=== PATIENT | male | born 1975 | race Hispanic/Latino ===

== ENCOUNTER 2021-04-23 07:52 | Outpatient (CLI) | payer OTHER | END 2021-04-23 07:53 | disposition home or self-care (01) | LOC: CSHWCC 07:52 | PROVIDERS: ATTEND Nurse Practitioner Family | DX: T81.89XD Other complications of procedures, not elsewhere classified, subsequent encounter (principal); T88.8XXD Other specified complications of surgical and medical care, not elsewhere classified, subsequent encounter; G89.21 Chronic pain due to trauma; K59.00 Constipation, unspecified; Z87.828 Personal history of other (healed) physical injury and trauma | CPT/HCPCS: 11042; 97605; 99203; G0463 ==

== ENCOUNTER 2021-04-27 08:30 | Outpatient (CLI) | payer SELFPAY | END 2021-04-27 08:31 | disposition home or self-care (01) | LOC: CSHWCC 08:30 | PROVIDERS: ATTEND Nurse Practitioner Family | DX: T81.89XD Other complications of procedures, not elsewhere classified, subsequent encounter (principal); T88.8XXD Other specified complications of surgical and medical care, not elsewhere classified, subsequent encounter; K59.00 Constipation, unspecified; G89.21 Chronic pain due to trauma; Z87.828 Personal history of other (healed) physical injury and trauma ==

== ENCOUNTER 2021-04-30 07:50 | Outpatient (CLI) | payer SELFPAY | END 2021-04-30 07:51 | disposition home or self-care (01) | LOC: CSHWCC 07:50 | PROVIDERS: ATTEND Nurse Practitioner Family | DX: T81.89XD Other complications of procedures, not elsewhere classified, subsequent encounter (principal); T88.8XXD Other specified complications of surgical and medical care, not elsewhere classified, subsequent encounter; K59.00 Constipation, unspecified; G89.21 Chronic pain due to trauma; Z87.828 Personal history of other (healed) physical injury and trauma ==

== ENCOUNTER 2021-05-04 12:20 | Outpatient (CLI) | payer SELFPAY | END 2021-05-04 12:21 | disposition home or self-care (01) | LOC: CSHWCC 12:20 | PROVIDERS: ATTEND Nurse Practitioner Family | DX: T81.89XD Other complications of procedures, not elsewhere classified, subsequent encounter (principal); T88.8XXD Other specified complications of surgical and medical care, not elsewhere classified, subsequent encounter; G89.21 Chronic pain due to trauma; K59.00 Constipation, unspecified; Z87.828 Personal history of other (healed) physical injury and trauma ==

== ENCOUNTER 2021-05-07 09:20 | Outpatient (CLI) | payer SELFPAY | END 2021-05-07 09:21 | disposition home or self-care (01) | LOC: CSHWCC 09:20 | PROVIDERS: ATTEND Nurse Practitioner Family | DX: T81.89XD Other complications of procedures, not elsewhere classified, subsequent encounter (principal); T88.8XXD Other specified complications of surgical and medical care, not elsewhere classified, subsequent encounter; K59.00 Constipation, unspecified; G89.21 Chronic pain due to trauma; Z87.828 Personal history of other (healed) physical injury and trauma | CPT/HCPCS: 97605 ==

== ENCOUNTER 2021-05-14 09:04 | Outpatient (CLI) | payer SELFPAY | END 2021-05-14 09:05 | disposition home or self-care (01) | LOC: CSHWCC 09:04 | PROVIDERS: ATTEND Nurse Practitioner Family | DX: T81.89XD Other complications of procedures, not elsewhere classified, subsequent encounter (principal); T88.8XXD Other specified complications of surgical and medical care, not elsewhere classified, subsequent encounter; K59.00 Constipation, unspecified; G89.21 Chronic pain due to trauma; Z87.828 Personal history of other (healed) physical injury and trauma | CPT/HCPCS: 97605 ==

== ENCOUNTER 2021-05-18 12:53 | Outpatient (CLI) | payer SELFPAY | END 2021-05-18 12:54 | disposition home or self-care (01) | LOC: CSHWCC 12:53 | PROVIDERS: ATTEND Nurse Practitioner Family | DX: T81.89XD Other complications of procedures, not elsewhere classified, subsequent encounter (principal); G89.21 Chronic pain due to trauma; K59.00 Constipation, unspecified; T88.8XXS Other specified complications of surgical and medical care, not elsewhere classified, sequela; Z87.828 Personal history of other (healed) physical injury and trauma | CPT/HCPCS: 97605 ==

== ENCOUNTER 2021-05-21 08:21 | Outpatient (CLI) | payer SELFPAY | END 2021-05-21 08:22 | disposition home or self-care (01) | LOC: CSHWCC 08:21 | PROVIDERS: ATTEND Nurse Practitioner Family | DX: T81.89XD Other complications of procedures, not elsewhere classified, subsequent encounter (principal); G89.21 Chronic pain due to trauma; K59.00 Constipation, unspecified; T88.8XXD Other specified complications of surgical and medical care, not elsewhere classified, subsequent encounter; Z87.828 Personal history of other (healed) physical injury and trauma ==

== ENCOUNTER 2021-05-27 08:21 | Outpatient (CLI) | payer SELFPAY | END 2021-05-27 08:22 | disposition home or self-care (01) | LOC: CSHWCC 08:21 | PROVIDERS: ATTEND Nurse Practitioner Family | DX: T81.89XD Other complications of procedures, not elsewhere classified, subsequent encounter (principal); G89.21 Chronic pain due to trauma; K59.00 Constipation, unspecified; T88.8XXS Other specified complications of surgical and medical care, not elsewhere classified, sequela; Z87.828 Personal history of other (healed) physical injury and trauma ==

== ENCOUNTER 2021-05-31 08:52 | Outpatient (CLI) | payer SELFPAY, OTHER | END 2021-05-31 08:53 | disposition home or self-care (01) | LOC: CSHWCC 08:52 | PROVIDERS: ATTEND Nurse Practitioner Family | DX: T81.89XD Other complications of procedures, not elsewhere classified, subsequent encounter (principal); T88.8XXD Other specified complications of surgical and medical care, not elsewhere classified, subsequent encounter; K59.00 Constipation, unspecified; G89.21 Chronic pain due to trauma; Z87.828 Personal history of other (healed) physical injury and trauma | CPT/HCPCS: 97605 ==

== ENCOUNTER 2021-06-03 15:00 | Outpatient (CLI) | payer SELFPAY | END 2021-06-03 15:01 | disposition home or self-care (01) | LOC: CSHWCC 15:00 | PROVIDERS: ATTEND Nurse Practitioner Family | DX: T81.89XD Other complications of procedures, not elsewhere classified, subsequent encounter (principal); T88.8XXD Other specified complications of surgical and medical care, not elsewhere classified, subsequent encounter; K59.00 Constipation, unspecified; G89.21 Chronic pain due to trauma; Z87.828 Personal history of other (healed) physical injury and trauma | CPT/HCPCS: 11042; 97605 ==

== ENCOUNTER 2021-06-07 09:22 | Outpatient (CLI) | payer SELFPAY | END 2021-06-07 09:23 | disposition home or self-care (01) | LOC: CSHWCC 09:22 | PROVIDERS: ATTEND Nurse Practitioner Family | DX: T81.89XD Other complications of procedures, not elsewhere classified, subsequent encounter (principal); T88.8XXD Other specified complications of surgical and medical care, not elsewhere classified, subsequent encounter; K59.00 Constipation, unspecified; G89.21 Chronic pain due to trauma; Z87.828 Personal history of other (healed) physical injury and trauma | CPT/HCPCS: 97607 ==

== ENCOUNTER 2021-06-10 15:23 | Outpatient (CLI) | payer SELFPAY | END 2021-06-10 15:24 | disposition home or self-care (01) | LOC: CSHWCC 15:23 | PROVIDERS: ATTEND Nurse Practitioner Family | DX: T81.89XD Other complications of procedures, not elsewhere classified, subsequent encounter (principal); K59.00 Constipation, unspecified; G89.21 Chronic pain due to trauma; T88.8XXD Other specified complications of surgical and medical care, not elsewhere classified, subsequent encounter; Z87.828 Personal history of other (healed) physical injury and trauma ==

== ENCOUNTER 2021-06-14 15:42 | Outpatient (CLI) | payer SELFPAY | END 2021-06-14 15:43 | disposition home or self-care (01) | LOC: CSHWCC 15:42 | PROVIDERS: ATTEND Nurse Practitioner Family | DX: T81.89XD Other complications of procedures, not elsewhere classified, subsequent encounter (principal); T88.8XXD Other specified complications of surgical and medical care, not elsewhere classified, subsequent encounter; K59.00 Constipation, unspecified; G89.21 Chronic pain due to trauma; Z87.828 Personal history of other (healed) physical injury and trauma ==

== ENCOUNTER 2021-06-17 14:47 | Outpatient (CLI) | payer SELFPAY | END 2021-06-17 14:48 | disposition home or self-care (01) | LOC: CSHWCC 14:47 | PROVIDERS: ATTEND Nurse Practitioner Family | DX: T81.89XD Other complications of procedures, not elsewhere classified, subsequent encounter (principal); T88.8XXD Other specified complications of surgical and medical care, not elsewhere classified, subsequent encounter; G89.21 Chronic pain due to trauma; K59.00 Constipation, unspecified; Z87.828 Personal history of other (healed) physical injury and trauma ==

== ENCOUNTER 2021-06-21 10:11 | Outpatient (CLI) | payer SELFPAY | END 2021-06-21 10:12 | disposition home or self-care (01) | LOC: CSHWCC 10:11 | PROVIDERS: ATTEND Nurse Practitioner Family | DX: T81.89XD Other complications of procedures, not elsewhere classified, subsequent encounter (principal); T88.8XXD Other specified complications of surgical and medical care, not elsewhere classified, subsequent encounter; K59.00 Constipation, unspecified; G89.21 Chronic pain due to trauma; Z87.828 Personal history of other (healed) physical injury and trauma | CPT/HCPCS: 99213; G0463 ==

== ENCOUNTER 2021-06-24 08:51 | Outpatient (CLI) | payer SELFPAY | END 2021-06-24 08:52 | disposition home or self-care (01) | LOC: CSHWCC 08:51 | PROVIDERS: ATTEND Nurse Practitioner Family | DX: T81.89XD Other complications of procedures, not elsewhere classified, subsequent encounter (principal); K59.00 Constipation, unspecified; G89.21 Chronic pain due to trauma; T88.8XXD Other specified complications of surgical and medical care, not elsewhere classified, subsequent encounter; Z87.828 Personal history of other (healed) physical injury and trauma ==

== ENCOUNTER 2021-06-28 10:43 | Outpatient (CLI) | payer SELFPAY, OTHER | END 2021-06-28 10:44 | disposition home or self-care (01) | LOC: CSHWCC 10:43 | PROVIDERS: ATTEND Nurse Practitioner Family | DX: T81.89XD Other complications of procedures, not elsewhere classified, subsequent encounter (principal) ==

== ENCOUNTER 2021-07-01 10:07 | Outpatient (CLI) | payer SELFPAY, OTHER | END 2021-07-01 10:08 | disposition home or self-care (01) | LOC: CSHWCC 10:07 | PROVIDERS: ATTEND Nurse Practitioner Family | DX: T81.89XD Other complications of procedures, not elsewhere classified, subsequent encounter (principal); T88.8XXD Other specified complications of surgical and medical care, not elsewhere classified, subsequent encounter; K59.00 Constipation, unspecified; G89.21 Chronic pain due to trauma; Z87.828 Personal history of other (healed) physical injury and trauma ==

== ENCOUNTER 2021-07-05 08:26 | Outpatient (CLI) | payer SELFPAY, OTHER | END 2021-07-05 08:27 | disposition home or self-care (01) | LOC: CSHWCC 08:26 | PROVIDERS: ATTEND Nurse Practitioner Family | DX: T81.89XD Other complications of procedures, not elsewhere classified, subsequent encounter (principal) ==

== ENCOUNTER 2021-07-13 08:09 | Outpatient (CLI) | payer SELFPAY, OTHER | END 2021-07-13 08:10 | disposition home or self-care (01) | LOC: CSHWCC 08:09 | PROVIDERS: ATTEND Nurse Practitioner Family | DX: T81.89XD Other complications of procedures, not elsewhere classified, subsequent encounter (principal) ==